=== PATIENT | male | born 1970 | race Caucasian/White ===

== ENCOUNTER → 2020-01-08 07:26 | Outpatient (REF) | payer OTHER, SELFPAY | LOC: ANHLAB 07:26 | PROVIDERS: Visit Provider Nurse Practitioner | DX: C44.311 Basal cell carcinoma of skin of nose (principal) | CPT/HCPCS: 88305; 88331 ==

== ENCOUNTER → 2021-01-20 07:30 | Outpatient (REF) | payer OTHER, SELFPAY | LOC: ANHLAB 07:30 | PROVIDERS: Visit Provider Nurse Practitioner | DX: C44.111 Basal cell carcinoma of skin of unspecified eyelid, including canthus (principal); C44.219 Basal cell carcinoma of skin of left ear and external auricular canal | CPT/HCPCS: 88305; 88331; 88342 ==

== ENCOUNTER 2023-07-05 14:25 | Outpatient (NON) | payer OTHER, SELFPAY | END 2023-07-05 14:26 | disposition home or self-care (01) | LOC: ANHLAB 14:26 | PROVIDERS: Visit Provider Nurse Practitioner | DX: C44.311 Basal cell carcinoma of skin of nose (principal) | CPT/HCPCS: 88305; 88331 ==